=== PATIENT | male | born 1955 | race Caucasian/White ===

== ENCOUNTER → 2017-11-07 | Outpatient (CLI) | payer BC ==
--- NOTE | 2017-11-08 09:29 | RADIOLOGY REPORT (SQ) ---
EXAM DESCRIPTION: U/S NON-OB PELVIS LTD W/O DOP COMPLETED DATE/TIME: 11/07/2017 6:09 pm REASON FOR STUDY: Unilateral inguinal hernia, without obstruction or gangrene COMPARISON: None. TECHNIQUE: Ultrasound was performed over the right and left inguinal regions without and with Valsal va. Grayscale and cine loop images were saved to pac's. LIMITATIONS: None. FINDINGS: A moderate size right inguinal hernia is present, bowel loops into the inguinal canal on V alsalva. No left-sided inguinal hernia is identified IMPRESSION: Moderate size right inguinal hernia TECHNICAL DOCUMENTATION: JOB ID: [id number] [employer]- All Rights Reserved
== END ==
LOC: RAD 17:11
PROVIDERS: ATTEND Internal Medicine
DX: K40.90 Unilateral inguinal hernia, without obstruction or gangrene, not specified as recurrent (principal)
CPT/HCPCS: 76857

== ENCOUNTER → 2019-04-17 | Outpatient (CLI) | payer BC ==
--- NOTE | 2019-04-17 12:32 | RADIOLOGY REPORT (SQ) ---
EXAM DESCRIPTION: KNEE RIGHT 4 VIEWS COMPLETED DATE/TIME: 04/17/2019 11:23 am REASON FOR STUDY: M25.561 PAIN IN RIGHT KNEE M25.561 PAIN IN RIGHT KNEE COMPARISON: None. NUMBER OF VIEWS: Four views. TECHNIQUE: AP, lateral, and both oblique radiographic images acquired of the right knee. LIMITATIONS: None. FINDINGS: MINERALIZATION: Normal. BONES: Osteophytic change medial and lateral knee joints with peaking of tibial spines. Enthesophyte for quadriceps attachment. JOINT: No effusion. SOFT TISSUES: No soft tissue swelling. No radio-opaque foreign body. OTHER: No other significant finding. IMPRESSION: Degenerative arthritis of the right knee. TECHNICAL DOCUMENTATION: JOB ID: [id number] [id number] 2010 [employer]- All Rights Reserved Reading location - IP/workstation name: [email or web address]
== END ==
LOC: RAD 11:05
PROVIDERS: ATTEND Physician Assistant
DX: M25.561 Pain in right knee (principal)

== ENCOUNTER 2020-08-17 10:09 | Emergency (ER) | payer BC ==
--- NOTE | 2020-08-17 10:15 | ER Document Report ---
ED Medical Screen (RME) - General Chief Complaint: Dog Bite Stated Complaint: DOGBITE/LEFT HAND Time Seen by Provider: 08/17/20 10:09 Primary Care Provider: DELFINO JOSE MD [Primary Care Provider] - Follow up as needed Information source: Patient TRAVEL OUTSIDE OF THE [place] IN LAST 30 DAYS: No - HPI Notes: Patient is a 65 y/o male who presents with a dog bite that occurred just prior to arrival. Patient states he was trying to separate his dog and his roommate's dog as they were fighting when he got bit by his roommates dog on his left hand. He denies any other injuries. He states both dogs are up to date on their vaccines. - Related Data Allergies/Adverse Reactions: No Known Allergies Allergy (Verified 06/22/16 05:54) Past Medical History - Past Medical History Cardiac Medical History: Reports: Hx Hypertension Denies: Hx Coronary Artery Disease, Hx Heart Attack Pulmonary Medical History: Denies: Hx Asthma, Hx Bronchitis, Hx COPD, Hx Pneumonia Neurological Medical History: Denies: Hx Cerebrovascular Accident, Hx Seizures Musculoskeltal Medical History: Denies Hx Arthritis - Immunizations Hx Diphtheria, Pertussis, Tetanus Vaccination: Yes Physical Exam - Cardiovascular Pulses: Normal: Radial - left - Extremities Hand: Other - Significant loss of tissue to the dorsal aspect of the left hand on the lateral side that wraps around to the palmar aspect. There is exposed muscles, tendons and bone. Able to move all digits on the left hand. Course - Re-evaluation Re-evalutation: I have greeted and performed a rapid initial assessment of this patient. A comprehensive ED assessment and evaluation of the patient, analysis of test results and completion of medical decision making process will be conducted by an additional ED providers. Doctor's Discharge - Discharge Referrals: DELFINO JOSE MD [Primary Care Provider] - Follow up as needed
[2020-08-17 10:22] VITALS: BP 156/87
[2020-08-17] MEDS ORDERED: HYDROCODONE/ACETAMINOPHEN 5-325 MG TABLET PO ONE (10:51)
[2020-08-17] MEDS ORDERED: DIPH/PERTUSS(ACELL)/TETANUS VAC/PF 0.5 ML SYR (>=10YO) IM ONE (10:51)
[2020-08-17] MEDS ORDERED: AMOXICILLIN TR/POT CLAVULANATE 875-125 MG TAB PO ONE (10:51)
--- NOTE | 2020-08-17 10:51 | RADIOLOGY REPORT (SQ) ---
EXAM DESCRIPTION: HAND LEFT 3 VIEWS IMAGES COMPLETED DATE/TIME: 08/17/2020 10:37 am REASON FOR STUDY: dog bite COMPARISON: None. EXAM PARAMETERS: NUMBER OF VIEWS: Three views. TECHNIQUE: AP, lateral and oblique radiographic images acquired of the left hand. LIMITATIONS: None. FINDINGS: MINERALIZATION: Normal. BONES: No acute fracture or dislocation. JOINTS: Osteoarthrosis of the 1st CMC and several IP joints. SOFT TISSUES: Soft tissue defect on the ulnar aspect of the hand. There is no radiopaque foreign bod y. OTHER: No other significant finding. IMPRESSION: Soft tissue defect on the ulnar aspect of the hand without an associated acute osseous a bnormality. TECHNICAL DOCUMENTATION: JOB ID: [id number] 2010 [employer]- All Rights Reserved Reading location - IP/workstation name: [email or web address]
--- NOTE | 2020-08-17 11:17 | ER Document Report ---
ED Animal Bite - General Chief Complaint: Dog Bite Stated Complaint: DOGBITE/LEFT HAND Time Seen by Provider: 08/17/20 10:10 Primary Care Provider: DELFINO JOSE MD [Primary Care Provider] - Follow up as needed TRAVEL OUTSIDE OF THE [place] IN LAST 30 DAYS: No - HPI Notes: Chief Complaint: Dog bite left hand Historian: History obtained from patient HPI: This is a 65-year-old male presents emergency department complaining of dog bite to his left hand that occurred about 1 hour ago. Patient says that his dog and his roommates dog got in a fight and he was trying to break them up when his roommate's dog clamped onto his left hand. Patient then pulled his hand away tearing the tissue away from the dorsum of his hand. Patient says the dog's rabies vaccinations are up-to-date. He is unsure of his last tetanus vaccination. He denies any range of motion deficit. Does report some mild tingling to the tip of his left pinky. No treatments tried prior to arrival. No other injuries reported. ROS: Constitutional: no fevers. HEENT: no BABIN, sore throat, or vision changes. CV: no chest pain or palpitations. Resp: no cough or SOB. GI: no abdominal pain, or n/v/d. : no dysuria, hematuria, or incont. MSK: Avulsion laceration to dorsum left hand Skin: no rashes or itching. Neuro: no seizures, weakness, numbness, or confusion. Hematological: no ecchymosis or easy bleeding. Endocrine: no polyuria/polydipsia, no heat/cold intolerance. Psych: no SI/HI, AH/VH or memory loss. PMHx: Reviewed and agree as charted by RN. PSHx: Reviewed and agree as charted by RN. SOCHx: Reviewed and agree as charted by RN. FHX: No significant familial comorbid conditions directly related to patient complaint Current Medications: Reviewed and agree with the patient medications as charted by the RN. Allergies: Reviewed and agree with the listed allergies as charted by the RN Physical Exam: Vitals: Reviewed in chart as documented by RN. General: Alert and in NAD. Head: Normocephalic; atraumatic Eyes: PERRLA, Conjunctivae clear sclerae non-icteric bilat ENT: no soft palate swelling or uvular deviation Neck: trachea midline, no unilateral swelling/tenderness/lymphadenopathy CV: RRR, no M/R/G; symmetric distal pulses Resp: respirations even and unlabored, CTA bilat. GI: abd soft and nondistended. NTTP. normal BS. no masses/HSM. no CVAT bilat MSK: Left handapproximate 3 cm x 4 cm avulsion injury to the dorsum of the hand overlying the 3rd, 4th, 5th metacarpals Dermal layers and subcutaneous tissue is absent. vasculature and Fascia visualized in wound bed but appears intact. No visualized foreign body in the wound bed. Very mild bleeding from the wound bed. Patient has full range of motion of digits including extension. I can visualize extensor tendons to digits 3 4 and 5 through the fascia and they appear intact. slight sensation deficit to lateral portion of distal 5th digit. Cap refill less than 3 seconds to all digits distally. Radial pulse 2+. Strength of digits is 5/5 and equal bilaterally. Skin: warm, moist, good turgor. no rash/lesions Neuro: Alert and oriented X 4. following CN 2-12 intact. no unilateral weakness/numbness Psych: No SI/HI or AH/VH. ED Results: Medical Decision-Making: Medical Decision-making/Differential Diagnosis: Consider various etiologies including but not limited to skin/soft tissue structure injury, MSK injury, strain/sprain, fracture, dislocation, bursitis, tendonitis, contusion, degloving, ect Plan-left hand x-ray, extensive wound care, pain control, Augmentin, tetanus, and Ortho hand consult. I discussed plan of care with Dr. Wilder of hand surgery. Since the avulsed tissue is absent not available for loose closure, he recommends wet-to-dry dressing, p.o. Augmentin, and follow-up in his office this week. I will also give patient a few days of pain control as well. Wound was extensively irrigated in the ER with 2 L of normal saline. I discussed home wound care and wet to dry dressing changes with patient. Strict return factors were discussed including signs of infection. Pt will call Hand Surgery's office today to schedule an appointment LAURA. This course of action was discussed with the patient and/or family. They were amenable to this, verbalized understanding, and were without further questions. Diagnosis: Dog bite to left hand Condition: Stable Disposition: Discharged home - Related Data Allergies/Adverse Reactions: No Known Allergies Allergy (Verified 06/22/16 05:54) Past Medical History - General Information source: Patient - Social History Smoking Status: Never Smoker Chew tobacco use (# tins/day): No Frequency of alcohol use: None Drug Abuse: None Family History: Reviewed & Not Pertinent - Past Medical History Cardiac Medical History: Reports: Hx Hypertension Denies: Hx Coronary Artery Disease, Hx Heart Attack Pulmonary Medical History: Denies: Hx Asthma, Hx Bronchitis, Hx COPD, Hx Pneumonia Neurological Medical History: Denies: Hx Cerebrovascular Accident, Hx Seizures Musculoskeletal Medical History: Denies Hx Arthritis - Immunizations Hx Diphtheria, Pertussis, Tetanus Vaccination: Yes Physical Exam - Vital signs Vitals: Temp Pulse Resp BP Pulse Ox 98.0 F 81 20 156/87 H 95 08/17/20 10:19 08/17/20 10:19 08/17/20 10:19 08/17/20 10:19 08/17/20 10:19 Course - Re-evaluation Re-evalutation: 08/17/20 12:19 Reviewed imaging soft tissue defect of the dorsum of left hand no other osseous abnormality or radiopaque foreign body noted - Vital Signs Vital signs: Temp Pulse Resp BP Pulse Ox 98.0 F 81 20 156/87 H 95 08/17/20 10:19 08/17/20 10:19 08/17/20 10:19 08/17/20 10:19 08/17/20 10:19 Discharge - Discharge Clinical Impression: Dog bite of left hand Qualifiers: Encounter type: initial encounter Qualified Code(s): S61.452A - Open bite of left hand, initial encounter Condition: Stable Disposition: HOME, SELF-CARE Additional Instructions: Call hand surgery and schedule a follow-up appointment for soon as possible. Follow printed instructions. Wound care and wet-to-dry dressing changes twice a day. Clean wound with water and antibacterial soap only. Keep wound clean. Complete entire course of antibiotics. No driving while on pain medications. May also take Motrin 600 mg every 6 hours as needed for pain. Watch for signs of infection we discussed and return for any worsening signs or symptoms. Or see Hand Surgery right away. Return to the ER if your condition worsens. Prescriptions: Hydrocodone/Acetaminophen [[place] 7.5-325 mg Tablet] 1 tab PO Q6HP PRN #12 tablet PRN Reason: For Pain Amoxicillin/Potassium Clav [Augmentin 875-125 Tablet] 1 tab PO Q12 #14 tablet Forms: Return to Work Referrals: DELFINO JOSE MD [Primary Care Provider] - Follow up as needed OMAR WILDER DO [ACTIVE STAFF] - Follow up as needed Print Language: Taiwanese
== END 2020-08-17 13:01 | disposition home or self-care (01) ==
LOC: ER 10:09
DX: S61.452A Open bite of left hand, initial encounter (principal); W54.0XXA Bitten by dog, initial encounter; Y93.89 Activity, other specified; Z23 Encounter for immunization; R20.2 Paresthesia of skin; I10 Essential (primary) hypertension
CPT/HCPCS: 99283; 90471; 73130; 90715; J3490

== ENCOUNTER 2020-08-18 08:37 | Emergency (ER) | payer BC ==
--- NOTE | 2020-08-18 09:43 | ER Document Report ---
ED General - General Chief Complaint: Wound Recheck Stated Complaint: WOUND RECHECK/DOGBITE Primary Care Provider: DELFINO JOSE MD [Primary Care Provider] - Follow up as needed TRAVEL OUTSIDE OF THE [place] IN LAST 30 DAYS: No - HPI Notes: Chief Complaint: Wound check Historian: History obtained from patient HPI: This is a 65-year-old male presents to the ER requesting a wound check to his left hand. I treated the patient yesterday for a dog bite to the left hand which completely avulsed skin and subcutaneous tissue to the dorsum of the hand. At the direction of the hand surgeon we started wet-to-dry dressings. Says he went home attempted to change the dressing and a piece of the plastic from the nonstick portion of the dressing remained in the wound bed and he could not remove it. He decided to just redress the wound and present to the ER for our evaluation. No other complaints at this time patient still has full range of motion of digits and denies any current sensory deficits. He denies increased drainage from the wound, redness, swelling, or increased pain. ROS: Constitutional: no fevers. HEENT: no BABIN, sore throat, or vision changes. CV: no chest pain or palpitations. Resp: no cough or SOB. GI: no abdominal pain, or n/v/d. : no dysuria, hematuria, or incont. MSK: no back pain, no joint swelling/redness. Skin: no rashes or itching. Neuro: no seizures, weakness, numbness, or confusion. Hematological: no ecchymosis or easy bleeding. Endocrine: no polyuria/polydipsia, no heat/cold intolerance. Psych: no SI/HI, AH/VH or memory loss. PMHx: Reviewed and agree as charted by RN. PSHx: Reviewed and agree as charted by RN. SOCHx: Reviewed and agree as charted by RN. FHX: No significant familial comorbid conditions directly related to patient complaint Current Medications: Reviewed and agree with the patient medications as charted by the RN. Allergies: Reviewed and agree with the listed allergies as charted by the RN Physical Exam: Vitals: Reviewed in chart as documented by RN. General: Alert and in NAD. Head: Normocephalic; atraumatic Eyes: PERRLA, Conjunctivae clear sclerae non-icteric bilat ENT: no soft palate swelling or uvular deviation Neck: trachea midline, no unilateral swelling/tenderness/lymphadenopathy CV: RRR, no M/R/G; symmetric distal pulses Resp: respirations even and unlabored, CTA bilat. GI: abd soft and nondistended. NTTP. normal BS. no masses/HSM. no CVAT bilat MSK: FROM of all extremities. No midline CTL spine tenderness/deformity Skin: Left [id number] dressing intact which was removed by me. I cannot visualize any retained pieces of the bandage in the wound bed although there is clot and wound exudate obscuring my view. Patient has no active bleeding. No signs of infection. Full range of motion of digits including extension. Sensation intact to all digits. Radial pulse 2+. Cap refill less than 3. Neuro: Alert and oriented X 4. following CN 2-12 intact. no unilateral weakness/numbness Psych: No SI/HI or AH/VH. ED Results: Medical Decision-Making: plan-we will irrigate wound to attempt better visualize if patient has any retained bandage in the wound bed. We will redress wet-to-dry and discharge patient home to continue same instructions as given yesterday though I encourage patient to increase frequency of dressing changes every 4-6 hours. he will f/u w/ hand surgery as planned. RN and myself irrigated the wound extensively. We attempted to debride some of the blood clot in the wound bed. We did not visualize any retained bandages in the wound bed. The clot in the wound bed does have the pattern from the Telfa that was over it. I believe this is what the patient is seen and believed to be a retained bandage. I did not order the Telfa to be placed in the wound bed yesterday. Find the patient why we use gauze only for wet-to-dry dressings RN redressed wound before discharge. And is neurologically intact without any signs of infection. Inform me that he has a appointment with hand surgery tomorrow morning at 930 which he will be going to. Diagnosis: wound check, left hand. dressing change left hand Condition: stable Disposition: discharge - Related Data Allergies/Adverse Reactions: No Known Allergies Allergy (Verified 06/22/16 05:54) Past Medical History - Social History Smoking Status: Never Smoker Chew tobacco use (# tins/day): No Frequency of alcohol use: None Drug Abuse: None Family History: Reviewed & Not Pertinent Patient has homicidal ideation: No - Past Medical History Cardiac Medical History: Reports: Hx Hypertension Denies: Hx Coronary Artery Disease, Hx Heart Attack Pulmonary Medical History: Denies: Hx Asthma, Hx Bronchitis, Hx COPD, Hx Pneumonia Neurological Medical History: Denies: Hx Cerebrovascular Accident, Hx Seizures Musculoskeletal Medical History: Denies Hx Arthritis - Immunizations Hx Diphtheria, Pertussis, Tetanus Vaccination: Yes Physical Exam - Vital signs Vitals: Temp Pulse Resp BP Pulse Ox 98.2 F 81 16 158/96 H 95 08/18/20 08:40 08/18/20 08:40 08/18/20 08:40 08/18/20 08:40 08/18/20 08:40 Course - Vital Signs Vital signs: Temp Pulse Resp BP Pulse Ox 98.2 F 81 16 158/96 H 95 08/18/20 08:40 08/18/20 08:40 08/18/20 08:40 08/18/20 08:40 08/18/20 08:40 Discharge - Discharge Clinical Impression: Visit for wound check, Change of dressing Condition: Stable Disposition: HOME, SELF-CARE Instructions: Dressing Instructions for Open Wounds ([facility]) Additional Instructions: You may increase the frequency of your wet-to-dry dressing changes to every 4-6 hours. Continue other wound care instructions as given to you yesterday. Continue antibiotics. Follow-up with hand surgery as planned. Return to the ER for any other concerns. Referrals: DELFINO JOSE MD [Primary Care Provider] - Follow up as needed
[2020-08-18 11:05] VITALS: BP 148/68
== END 2020-08-18 11:05 | disposition home or self-care (01) ==
LOC: ER 08:37
DX: S61.452D Open bite of left hand, subsequent encounter (principal); W54.0XXD Bitten by dog, subsequent encounter
CPT/HCPCS: 99281

== ENCOUNTER 2020-08-19 12:27 | Emergency (ER) | payer BC ==
[2020-08-19] MEDS ORDERED: RABIES VACCINE (PCEC)/PF 2.5 UNIT/1 ML KIT IM ONE (13:15)
[2020-08-19] MEDS ORDERED: RABIES IMMUNE GLOBULIN INJ/PF 300 UNIT/ML VIAL IM ONE (13:15)
--- NOTE | 2020-08-19 13:15 | ER Document Report ---
HPI - HPI Patient complains to provider of: animal bite Time Seen by Provider: 08/19/20 13:00 Onset: Other - 2 days Onset/Duration: Better Quality of pain: Achy Severity: Mild Pain Level: 1 Context: 65-year-old male presented to ED for rabies vaccination. He states animal control called him and said that since he did not have the dog to be tested even though the dog's immunizations were up-to-date he should get the rabies vaccine. He states he shot the dog in the head and animal control states they cannot test the brain after it has been shot in the head. We did investigate whether the rabies vaccination was recommended and it states that a person can get rabies even though very rare even though the dog has been vaccinated. It rec ommended sending the brain off to test for rabies but the sprain has been destroyed. I have written the orders for the rabies immunization and vaccine for this patient. Constitutional: Negative for fever. HENT: Negative for sore throat. Eyes: Negative for visual changes. Cardiovascular: Negative for chest pain. Respiratory: Negative for shortness of breath. Gastrointestinal: Negative for abdominal pain, vomiting or diarrhea. Genitourinary: Negative for dysuria. Musculoskeletal: Negative for back pain. Skin: Dog bites to the left hand multiple injuries to the left hand. Neurological: Negative for headaches, weakness or numbness. 10 point ROS negative except as marked above and in HPI. PHYSICAL EXAMINATION: GENERAL: Well-appearing, well-nourished and in no acute distress. HEAD: Atraumatic, normocephalic. EYES: Pupils equal round extraocular movements intact, conjunctiva are normal. ENT: Nares patent NECK: Normal range of motion LUNGS: No respiratory distress Musculoskeletal: Normal range of motion NEUROLOGICAL: Normal speech, normal gait. PSYCH: Normal mood, normal affect. SKIN: Patient has a open wound to the posterior aspect of the left hand. There is no actual infection noted at this time. He does have some swelling to the hand. Taking antibiotics as prescribed. Associated Symptoms: Other - Pain to the back of the left hand Exacerbated by: Movement Relieved by: Denies Similar symptoms previously: Yes Recently seen / treated by doctor: Yes - REPRODUCTIVE Reproductive: DENIES: : Past Medical History - General Information source: Patient - Social History Smoking Status: Never Smoker Frequency of alcohol use: Rare Drug Abuse: None Occupation: [employer] Lives with: Friend Family History: Reviewed & Not Pertinent Patient has suicidal ideation: No Patient has homicidal ideation: No - Past Medical History Cardiac Medical History: Reports: Hx Hypertension Pulmonary Medical History: Reports: None EENT Medical History: Reports: None Neurological Medical History: Reports: None Endocrine Medical History: Reports: None Renal/ Medical History: Reports: None Malignancy Medical History: Reports None GI Medical History: Reports: None Musculoskeletal Medical History: Reports Hx Musculoskeletal Deformity, Reports Hx Musculoskeletal Trauma - Cervical Skin Medical History: Reports None Psychiatric Medical History: Reports: None Traumatic Medical History: Reports: Hx Fractures - Clavicle Infectious Medical History: Reports: None Past Surgical History: Reports: Hx Inguinal Hernia - biLateral, Hx Orthopedic Surgery - Medial meniscus - Immunizations Immunizations up to date: Yes Hx Diphtheria, Pertussis, Tetanus Vaccination: Yes - 08/17/2020 Vertical Provider Document - INFECTION CONTROL TRAVEL OUTSIDE OF THE [place] IN LAST 30 DAYS: No Course - Vital Signs Vital signs: Temp Pulse Resp BP Pulse Ox 98.3 F 89 20 163/78 H 94 08/19/20 12:42 08/19/20 12:42 08/19/20 12:42 08/19/20 12:42 08/19/20 12:42 Discharge - Discharge Clinical Impression: Rabies vaccination post animal bite Condition: Stable Disposition: HOME, SELF-CARE Additional Instructions: Animal Bites Animal bites are often heavily contaminated with bacteria. In spite of thorough cleansing and proper treatment, these wounds frequently become infected. Bite wounds of the hands are especially prone to complications. Bites are dressed, if possible. Large wounds may require suturing after internal cleansing. Because of infection risk, some large wounds must remain unstitched. Your doctor is trained to advise you on the best treatment for your bite. Call the doctor at once if the wound becomes red, swollen, warm, increasingly painful, or if it begins to drain. Danger signs also include red streaks up the involved extremity, swollen glands in the groin or under the arm, or fever and chills. The risk of rabies from domestic animals is very low. Bats, sick animals, and wild animals may expose you to rabies. The physician, or the health department, will inform you if you will need to receive the rabies vaccine. Rabies Prophyllaxis Rabies immunization can prevent infection with the rabies virus. This virus is always fatal if it reaches the nervous system. Exposure to an infected animal's saliva requires a series of shots. If you're already immunized, you may need only a booster shot. It's critical for you to follow the exact schedule of immunizations. After the first shot, we give repeat doses in 3 days, 7 days, 14 days, and 28 days. The repeat doses can also be given through the Health Department or by special arrangement with your doctor. Ibuprofen or acetaminophen can be used for aching and swelling at the injection site. Call the doctor or return if you develop increasing pain, fever, chills, or spreading redness, or if you become short of breath or faint. Use your antibiotics as prescribed. Acetaminophen Acetaminophen may be taken for pain relief or fever control. It's much safer than aspirin, offering a wider range of "safe" dosages. It is safe during . Some brand names are Tylenol, Panadol, Datril, Anacin 3, Tempra, and Liquiprin. Acetaminophen can be repeated every four hours. The following are maximum recommended dosages: WEIGHT Dose Drops Elixir Chewable(80mg) (LBS.) drprs=droppers tsp=teaspoon 6 40 mg .4 ml (1/2) 6-11 80 mg .8 ml (full) 1/2 tsp 1 tab 12-16 120 mg 1 1/2 drprs 3/4 tsp 1 1/2 tabs 17-23 160 mg 2 drprs 1 tsp 2 tabs 24-30 240 mg 3 drprs 1 1/2 tsp 3 tabs 30-35 320 mg 2 tsp 4 tabs 36-41 360 mg 2 1/4 tsp 4 1/2 tabs 42-47 400 mg 2 1/2 tsp 5 tabs 48-53 480 mg 3 tsp 6 tabs 54-59 520 mg 3 1/4 tsp 6 1/2 tabs 60-64 560 mg 3 1/2 tsp 7 tabs 65-70 600 mg 3 3/4 tsp 7 1/2 tabs 71-76 640 mg 4 tsp 8 tabs 77-82 720 mg 4 1/2 tsp 9 tabs 83-88 800 mg 5 tsp 10 tabs >89 pounds or adults 650 mg to 900 mg Acetaminophen can be repeated every four hours. Maximum daily dose not to exceed 4000 mg. These maximum recommended dosages are slightly higher than the dosages written on the product container, but these dosages are very safe and well below the toxic dosage for acetaminophen. Ibuprofen Ibuprofen is an excellent, safe drug for pain control. In addition, it has potent antiinflammatory effects which are beneficial, especially in the treatment of injuries, arthritis, or tendonitis. It's best to take ibuprofen with food. Persons with ulcer disease or allergy to aspirin should notify their physician of this before taking ibuprofen. Take the medication exactly as prescribed. Don't take additional doses unless instructed to do so by your doctor. If you develop wheezing, shortness of breath, hives, faintness, stomach pain, vomiting, or dark black stools, return for re-evaluation at once. FOLLOW-UP CARE: If you have been referred to a physician for follow-up care, call the physicians office for an appointment as you were instructed or within the next two days. If you experience worsening or a significant change in your symptoms, notify the physician immediately or return to the Emergency Department at any time for re-evaluation. Forms: Elevated Blood Pressure Referrals: DELFINO JOSE MD [Primary Care Provider] - Follow up in 3-5 days
[2020-08-19 14:45] VITALS: BP 155/73
== END 2020-08-19 14:15 | disposition home or self-care (01) ==
LOC: ER 12:27
DX: Z23 Encounter for immunization (principal); S61.452A Open bite of left hand, initial encounter; W54.0XXA Bitten by dog, initial encounter; Z20.3 Contact with and (suspected) exposure to rabies; I10 Essential (primary) hypertension
CPT/HCPCS: 90375; 90471; 90472; 90675; 96372; 99282